=== PATIENT | male | born 1955 | race Caucasian/White ===

== ENCOUNTER 2017-07-20 07:59 | Inpatient (IN) | payer OTHER ==
[2017-07-20] VITALS (23 sets, daily range): BP systolic 96–120; BP diastolic 64–101; PULSE 64–117; RESP 12–23; TEMP 97.9–99.5; O2SAT 92–97
[~2017-07-20] VITALS: Ht 175.3 cm; Wt 78.5 kg
[2017-07-20] MEDS ORDERED: DILTIAZEM HCL 25 MG/5 ML VIAL IV PUSH ONE (08:15)
[2017-07-20] MEDS ORDERED: SODIUM CHLORIDE 0.9% FLUSH 10 ML FLUSH IVF PRN (08:15)
[2017-07-20] MEDS ORDERED: DILTIAZEM INJ 125 MG in SODIUM CHLORIDE 0.9% INJ 100 ML IV PRN ×2 (08:15→11:30)
[2017-07-20] MEDS ORDERED: LEVEMIR SQ (08:18)
[2017-07-20] MEDS ORDERED: ZOLO100T PO (08:18)
[2017-07-20] MEDS ORDERED: INSU100C SQ (08:18)
[2017-07-20] MEDS ORDERED: APIX5TAB PO (08:18)
[2017-07-20] MEDS ORDERED: ASPI81CH6 CHEW (08:18)
[2017-07-20] MEDS ORDERED: METO50TA PO (08:18)
[2017-07-20 08:22] LABS: AUTOMATED NEUTROPHIL # 6.8 TH/MM3 (1.8-7.7); BASOPHIL # 0.1 TH/MM3 (0-0.2); BASOPHIL % 0.6 % (0.0-2.0); EOSINOPHIL # 0.3 TH/MM3 (0-0.4); EOSINOPHIL % 2.5 % (0.0-4.0); HEMATOCRIT 44.1 % (39.0-51.0); HEMO FLAGS DIFF FINAL; LYMPH % 23.9 % (9.0-44.0); LYMPHOCYTE # 2.5 TH/MM3 (1.0-4.8); MEAN CELL VOLUME 85.1 FL (80.0-100.0); MEAN CORPUSCULAR HEMOGLOBIN 27.7 PG (27.0-34.0); MEAN CORPUSCULAR HGB CONC 32.6 % (32.0-36.0); MONO % 5.7 % (0.0-8.0); NEUT % 67.3 % (16.0-70.0); PLATELET COUNT 140 TH/MM3 (150-450); RED BLOOD COUNT 5.18 MIL/MM3 (4.50-5.90); RED CELL DISTRIBUTION WIDTH 12.7 % (11.6-17.2); WHITE BLOOD COUNT 10.3 TH/MM3 (4.0-11.0)
--- NOTE | 2017-07-20 08:26 | RADRPT ---
EXAM DATE/TIME: 07/20/2017 08:13 [place] COMPARISON: No previous studies available for comparison. INDICATIONS : Chest pain MEDICAL HISTORY : Diabetes mellitus type II. AFib SURGICAL HISTORY : None. ENCOUNTER: Initial ACUITY: 3 months PAIN SCORE: 5/10 LOCATION: Bilateral chest FINDINGS: Linear opacity at the left lung base with mild elevation of the left hemidiaphragm. Cardiomediastinal contours are within normal limits. Bony thorax is intact. CONCLUSION: 1. Findings consistent with atelectasis/scarring in the left lung base. Jin Durán MD on July 20, 2017 at 8:23 Board Certified Radiologist. This report was verified electronically.
[2017-07-20 08:30] LABS: CHLORIDE 102 MEQ/L (98-107); POTASSIUM 4.1 MEQ/L (3.5-5.1); SODIUM (NA) 135 MEQ/L (136-145)
[2017-07-20 08:33] LABS: ANION GAP 6 MEQ/L (5-15); BICARBONATE 27.3 MEQ/L (21.0-32.0)
[2017-07-20 08:34] LABS: BLOOD UREA NITROGEN 12 MG/DL (7-18)
[2017-07-20 08:36] LABS: ALT (GPT) 19 U/L (12-78)
[2017-07-20 08:37] LABS: AST (GOT) 17 U/L (15-37); GLOMERULAR FILTRATION RATE 118 ML/MIN (>89)
[2017-07-20 08:38] LABS: TOTAL BILIRUBIN ADULT 0.8 MG/DL (0.2-1.0)
[2017-07-20 08:39] LABS: ALKALINE PHOSPHATASE 89 U/L (45-117)
--- NOTE | 2017-07-20 09:57 | HHI.HP ---
[facility] Primary [facility] Physician No Primary Care Physician Admission Diagnosis atrial fibrillation with rvr Diagnoses: (1) Atrial fibrillation with RVR Diagnosis: Principal (2) Chest pain Diagnosis: Principal Chief Complaint: Shortness of breath, dyspnea, chest pain Travel History International Travel<30 Days: No Contact w/Intl Traveler <30 Da: No Traveled to Known Affected Are: No History of Present Illness Written by Chace Angeles, acting as scribe for Dr. Weinberg on 07/20/17 at 09 :56. 61 year-old male with known history of spinal stenosis, atrial fibrillation who presented to the hospital because of shortness of breath, dyspnea on exertion, chest discomfort, palpitations. Patient states that he is normal state of health until yesterday afternoon when he started noticing palpitations and he could feel his atrial fibrillation. Whenever he exerted himself he did notice increased palpitations as well as a chest pressure, he describes it as a squeezing inside of his chest. At any radiation to neck, back , shoulder, arms. He denied any diaphoresis, lightheadedness, dizziness. He was experiencing shortness of breath and dyspnea on exertion. Patient states that he was diagnosed with atrial fibrillation in April when he underwent lumbar spine surgery. He is supposed to take the Toprol 25 mg twice daily, however he is limited taken it once daily because it causes him to have too much fatigue and somnolence. Patient has not followed up with any primary medical doctor or piece cutter for his atrial fibrillation since he was diagnosed in April in [place], [place]. Patient just moved here one week ago and does not have a primary medical doctor. Patient had evaluation emergency department found to have atrial fibrillation with RVR with heart rate of 131. Patient given Cardizem IV 15 mg with control of his heart rate and subtotally started on Cardizem 5 mg/hr IV. Patient's heart rate has remained controlled. Patient does not indicate any chest discomfort once rate controlled. Review of Systems Respiratory: COMPLAINS OF: Shortness of breath Cardiovascular: COMPLAINS OF: Chest pain, Palpitations, Dyspnea on Exertion Except as stated in HPI: all other systems reviewed are Neg Past Family Social History Past Medical History Atrial fibrillation Diabetes Lumbar spinal stenosis Past Surgical History Lumbar spine surgery for spinal stenosis Reported Medications Reported Meds & Active Scripts Active Reported Levemir Inj (Insulin Detemir) 1,000 unit/ 10 ML Vial 12 Units SQ HS Do not mix with any other Insulin. Humalog (Insulin Lispro) 100 Unit/Ml Cartridge 4 Units SQ TIDAC Eliquis (Apixaban) 5 Mg Tab 5 Mg PO BID Aspirin Low Dose (Aspirin) 81 Mg Chew 81 Mg CHEW DAILY Metoprolol Tartrate 50 Mg Tab 50 Mg PO BID Zoloft (Sertraline HCl) 100 Mg Tab 100 Mg PO DAILY Allergies: Coded Allergies: No Known Allergies (Unverified , 07/20/17) Family History Reviewed and significant for father from lung cancer, mother from pancreatic cancer Social History Patient continues to smoke cigarettes, is smoking approximately one quarter pack a cigarettes a day since he was 33 years old. Denies any alcohol or illicit drugs Physical Exam Vital Signs Vital Signs Date Time Temp Pulse Resp B/P (MAP) Pulse Ox O2 Delivery O2 Flow Rate FiO2 07/20/17 09:02 79 18 104/69 (81) 96 Nasal Cannula 2.00 07/20/17 08:41 92 93/68 07/20/17 08:35 96 Nasal Cannula 2.00 07/20/17 08:30 76 18 92 Room Air 07/20/17 08:19 115 120/90 (100) 115/85 (95) 07/20/17 08:13 95 Room Air 07/20/17 08:13 95 Room Air 07/20/17 08:06 134 95 Room Air 07/20/17 08:00 97.9 117 18 120/101 (107) 94 Physical Exam GENERAL: Well-developed, well-nourished, in no acute distress. alert and orientated HEENT: Head is normocephalic without any lesions or masses noted. Facial features are symmetric. Eyes: Pupils equal round reactive to light. Extraocular muscles are intact. Conjunctivae were clear. Oropharyngeal: Pharynx without any erythema edema. Tongue is midline without deviation. Buccal mucosa is moist without any masses or lesions NECK: Supple without any masses. Trachea midline no deviation. No JVD, no bruits are appreciated CARDIAC: Irregular rhythm, irregular rate. S1/S2 are heard. No murmurs gallops or rubs. LUNGS: Clear to auscultation bilaterally. No wheeze, rhonchi or rales. No use of accessory muscles on inspiration or expiration. ABDOMEN: Soft, nontender. Nondistended. Bowel sounds heard in all 4 quadrants. No organomegaly or masses. Negative rebound, negative guarding EXTREMITIES: No edema, pulses are equal bilaterally. No cyanosis or clubbing NEUROLOGY: Mood and affect appear appropriate. Cranial nerves II through XII grossly intact. Muscle strength 5/5 in upper and lower extremities bilaterally. Deep tendon reflexes are 2+ in upper and lower extremities bilaterally. Laboratory Laboratory Tests Test 07/20/17 08:00 White Blood Count 10.3 Red Blood Count 5.18 Hemoglobin 14.4 Hematocrit 44.1 Mean Corpuscular Volume 85.1 Mean Corpuscular Hemoglobin 27.7 Mean Corpuscular Hemoglobin Concent 32.6 Red Cell Distribution Width 12.7 Platelet Count 140 Mean Platelet Volume 9.1 Neutrophils (%) (Auto) 67.3 Lymphocytes (%) (Auto) 23.9 Monocytes (%) (Auto) 5.7 Eosinophils (%) (Auto) 2.5 Basophils (%) (Auto) 0.6 Neutrophils # (Auto) 6.8 Lymphocytes # (Auto) 2.5 Monocytes # (Auto) 0.6 Eosinophils # (Auto) 0.3 Basophils # (Auto) 0.1 CBC Comment DIFF FINAL Differential Comment Blood Urea Nitrogen 12 Creatinine 0.68 Random Glucose 208 Total Protein 8.6 Albumin 3.7 Calcium Level 8.7 Alkaline Phosphatase 89 Aspartate Amino Transf (AST/SGOT) 17 Alanine Aminotransferase (ALT/SGPT) 19 Total Bilirubin 0.8 Sodium Level 135 Potassium Level 4.1 Chloride Level 102 Carbon Dioxide Level 27.3 Anion Gap 6 Estimat Glomerular Filtration Rate 118 Troponin I LESS THAN 0.02 Result Diagram: 07/20/17 0800 07/20/17 08 Imaging Last Impressions Chest X-Ray 07/20/17808 Signed Impressions: Service Date/Time: Thursday, July 20, 2017 08:13 - CONCLUSION: 1. Findings consistent with atelectasis/scarring in the left lung base. MD Shirley Sim VTE Risk Assessment Caprini VTE Risk Assessment: Mod/High Risk (score >= 2) Caprini Risk Assessment Model Point Value = 1 Point Value = 2 Point Value = 3 Point Value = 5 Age 41-60 Minor surgery BMI > 25 kg/m2 Swollen legs Varicose veins or History of unexplained or recurrent spontaneous Oral contraceptives or hormone replacement Sepsis (< 1 month) Serious lung disease, including pneumonia (< 1 month) Abnormal pulmonary function Acute myocardial infarction Congestive heart failure (< 1 month) History of inflammatory bowel disease Medical patient at bed rest Age 61-74 Arthroscopic surgery Major open surgery (> 45 min) Laparoscopic surgery (> 45 min) Malignancy Confined to bed (> 72 hours) Immobilizing plaster cast Central venous access Age >= 75 History of VTE Family history of VTE Factor V Leiden Prothrombin [id number] Lupus anticoagulant Anticardiolipin antibodies Elevated serum homocysteine Heparin-induced thrombocytopenia Other congenital or acquired thrombophilia Stroke (< 1 month) Elective arthroplasty Hip, pelvis, or leg fracture Acute spinal cord injury (< 1 month) Prophylaxis Regimen Total Risk Factor Score Risk Level Prophylaxis Regimen 0-1 Low Early ambulation 2 Moderate Order ONE of the following: *Sequential Compression Device (SCD) *Heparin 5000 units SQ BID 3-4 Higher Order ONE of the following medications: *Heparin 5000 units SQ TID *Enoxaparin/Lovenox 40 mg SQ daily (WT < 150 kg, CrCl > 30 mL/min) *Enoxaparin/Lovenox 30 mg SQ daily (WT < 150 kg, CrCl > 10-29 mL/min) *Enoxaparin/Lovenox 30 mg SQ BID (WT < 150 kg, CrCl > 30 mL/min) AND/OR *Sequential Compression Device (SCD) 5 or more Highest Order ONE of the following medications: *Heparin 5000 units SQ TID (Preferred with Epidurals) *Enoxaparin/Lovenox 40 mg SQ daily (WT < 150 kg, CrCl > 30 mL/min) *Enoxaparin/Lovenox 30 mg SQ daily (WT < 150 kg, CrCl > 10-29 mL/min) *Enoxaparin/Lovenox 30 mg SQ BID (WT < 150 kg, CrCl > 30 mL/min) AND *Sequential Compression Device (SCD) Assessment and Plan Problem List: (1) Atrial fibrillation with RVR ICD Code: I48.91 - Unspecified atrial fibrillation Assessment and Plan 61-year-old man with Atrial fibrillation with RVR, CHADS score 2, patient anticoagulated on Eliquis EKG does show heart rate 131, atrial fibrillation with RVR ACS rule out per protocol with serial cardiac enzymes and EKGs Continue Cardizem IV drip, start by mouth Cardizem 30 mg every 6 hours and discontinue Cardizem IV Anticipating converting to Cardizem CD 120 mg tomorrow a.m. We'll hold metoprolol secondary to low blood pressure chest discomfort, Patient indicates chest pain associated with palpitations, exertion, shortness of breath Continue trending cardiac enzymes and EKGs to rule out any acute coronary event Awaiting echocardiogram to evaluate cardiac function Diabetes Continue Levemir Accu-Cheks with sliding scale insulin DVT prevention Patient is anticoagulated with Eliquis This note was transcribed by mari Angeles. I, Dr. Murphy Weinberg personally performed the history, physical exam, and medical decision making; and confirmed the accuracy of the information in the transcribed note. Authenticated by Dr. Murphy Weinberg on 07/20/17 at 09:57. Code Status Full code Discussed Condition With Patient, ED physician Physician Certification 2 Midnight Certification Type: Admission for Inpatient Services Order for Inpatient Services The services are ordered in accordance with Medicare regulations or non- Medicare payer requirements, as applicable. In the case of services not specified as inpatient-only, they are appropriately provided as inpatient services in accordance with the 2-midnight benchmark. Estimated LOS (days): 2 days is the estimated time the patient will need to remain in the hospital, assuming treatment plan goals are met and no additional complications. Post-Hospital Plan: Not yet determined Chace Angeles Jul 20, 2017 09:57 Murphy Weinberg MD Jul 20, 2017 09:57
[2017-07-20] MEDS ORDERED: ACETAMINOPHEN 325 MG TAB PO PRN (10:00)
[2017-07-20] MEDS ORDERED: ONDANSETRON HCL 4 MG/2 ML VIAL IV PUSH PRN (10:00)
[2017-07-20] MEDS ORDERED: DEXTROSE 50% IN WATER 50 ML VIAL(D50) IV PUSH PRN (10:00)
[2017-07-20] MEDS ORDERED: GLUCAGON 1 MG/ML VIAL OTHER PRN (10:00)
[2017-07-20] MEDS ORDERED: DOCUSATE SODIUM 50 MG/SENNA 8.6 MG TAB PO PRN (10:00)
[2017-07-20] MEDS ORDERED: SODIUM CHLORIDE 0.9% FLUSH 10 ML FLUSH IV FLUSH PRN (10:00)
[2017-07-20] MEDS ORDERED: TEMAZEPAM 15 MG CAP PO PRN (10:00)
[2017-07-20] MEDS: DILTIAZEM HCL 30 MG TAB PO SCH ×3 (11:54→23:53)
[2017-07-20] MEDS: INSULIN ASPART SUPPLEMENTAL SCALE SQ SCH ×3 (12:00→20:32)
[2017-07-20] MEDS: INSULIN ASPART 1,000 UNITS/10 ML VIAL SQ SCH ×2 (12:00→17:00)
--- NOTE | 2017-07-20 13:07 | PD ---
HPI Chief Complaint: Chest Pain Time Seen by Provider: 08:01 Travel History International Travel<30 days: No Contact w/Intl Traveler<30days: No Traveled to known affect area: No History of Present Illness HPI This is a 61-year-old male who presents to the emergency department with increasing shortness of breath, worse with exertion, improved with rest associated with palpitations feeling like his heart is beating quickly and his chest. He was told about a month ago when Screened for back surgery that he had atrial fibrillation and at that time he was started on rate control medications. Since then he's moved. He's been taking his medications as prescribed. He says his symptoms have acutely worsened over the past 3 days to the point where he can't exert normally without having to take a break. PFSH Past Medical History Atrial Fibrillation: Yes Autoimmune Disease: No Depression: Yes Heart Rhythm Problems: Yes Cancer: No Cardiovascular Problems: Yes (Afib) High Cholesterol: No Chest Pain: Yes Congestive Heart Failure: No Cerebrovascular Accident: No Diabetes: Yes Patient Takes Glucophage: No Endocrine: Yes (TYPE 2 DM) GERD: Yes Genitourinary: No Hiatal Hernia: No Musculoskeletal: No Neurologic: Yes (lumbar stenosis) Psychiatric: No Reproductive: No Respiratory: No Migraines: No Seizures: No Thyroid Disease: No Ulcer: No Influenza Vaccination: No Past Surgical History Abdominal Surgery: No AICD: No Arteriovenous Shunt: No Cardiac Surgery: No Ear Surgery: No Endocrine Surgery: No Eye Surgery: No Genitourinary Surgery: No Gynecologic Surgery: No Insulin Pump: No Joint Replacement: No Oral Surgery: Yes (tooth extraction) Pacemaker: No Thoracic Surgery: No Other Surgery: Yes (SPINAL SURGERY) Social History Alcohol Use: No Tobacco Use: No Substance Use: No Allergies-Medications (Allergen,Severity, Reaction): Coded Allergies: No Known Allergies (Unverified , 07/20/17) Reported Meds & Prescriptions Reported Meds & Active Scripts Active Reported Levemir Inj (Insulin Detemir) 1,000 unit/ 10 ML Vial 12 Units SQ HS Do not mix with any other Insulin. Humalog (Insulin Lispro) 100 Unit/Ml Cartridge 4 Units SQ TIDAC Eliquis (Apixaban) 5 Mg Tab 5 Mg PO BID Aspirin Low Dose (Aspirin) 81 Mg Chew 81 Mg CHEW DAILY Metoprolol Tartrate 50 Mg Tab 50 Mg PO BID Zoloft (Sertraline HCl) 100 Mg Tab 100 Mg PO DAILY Review of Systems Except as stated in HPI: all other systems reviewed are Neg Physical Exam Narrative GENERAL:Well appearing, no acute distress SKIN: Focused skin assessment warm and dry. HEAD: Atraumatic. Normocephalic. EYES: Pupils equal and round. No injection or drainage. ENT: Moist mucous membranes NECK: Trachea midline. CARDIOVASCULAR: tachycardic, irregularly irregular. No murmur appreciated. RESPIRATORY: Clear to auscultation. Breath sounds equal bilaterally. GASTROINTESTINAL: Abdomen soft, non-tender, nondistended. MUSCULOSKELETAL: No obvious deformities. NEUROLOGICAL: Awake and alert. No obvious cranial nerve deficits. Moving all extremities. PSYCHIATRIC: Appropriate mood and affect; insight and judgment normal. Data Data Last Documented VS Vital Signs Date Time Temp Pulse Resp B/P (MAP) Pulse Ox O2 Delivery O2 Flow Rate FiO2 07/20/17 09:02 79 18 104/69 (81) 96 Nasal Cannula 2.00 07/20/17 08:00 97.9 Orders Orders Electrocardiogram (07/20/17 08:09) Complete Blood Count With Diff (07/20/17 08:09) Comprehensive Metabolic Panel (07/20/17 08:09) Troponin I (07/20/17 08:09) Chest, Single Ap (07/20/17 08:09) Ecg Monitoring (07/20/17 08:09) Bilateral Bp Monitoring (07/20/17 08:09) Iv Access Insert/Monitor (07/20/17 08:09) Oximetry (07/20/17 08:09) Oxygen Administration (07/20/17 08:09) Sodium Chloride 0.9% Flush (Ns Flush) (07/20/17 08:15) Vital Signs (Adult) Q15MX4,Q4H (07/20/17 08:09) [employer] [facility] [employer] / Telemetry SALO.Q8H (07/20/17 08:09) Cardiac Rhythm SALO.Q8H (07/20/17 08:09) Notify Dr: Other (07/20/17 08:09) Diltiazem Inj (Cardizem Inj) (07/20/17 08:15) Diltiazem Inj (Cardizem Inj) (07/20/17 08:15) B-Type Natriuretic Peptide (07/20/17 09:18) Electrocardiogram (07/20/17 ) Admit Order (Ed Use Only) (07/20/17 09:54) Labs Laboratory Tests Test 07/20/17 08:00 White Blood Count 10.3 TH/MM3 Red Blood Count 5.18 MIL/MM3 Hemoglobin 14.4 GM/DL Hematocrit 44.1 % Mean Corpuscular Volume 85.1 FL Mean Corpuscular Hemoglobin 27.7 PG Mean Corpuscular Hemoglobin Concent 32.6 % Red Cell Distribution Width 12.7 % Platelet Count 140 TH/MM3 Mean Platelet Volume 9.1 FL Neutrophils (%) (Auto) 67.3 % Lymphocytes (%) (Auto) 23.9 % Monocytes (%) (Auto) 5.7 % Eosinophils (%) (Auto) 2.5 % Basophils (%) (Auto) 0.6 % Neutrophils # (Auto) 6.8 TH/MM3 Lymphocytes # (Auto) 2.5 TH/MM3 Monocytes # (Auto) 0.6 TH/MM3 Eosinophils # (Auto) 0.3 TH/MM3 Basophils # (Auto) 0.1 TH/MM3 CBC Comment DIFF FINAL Differential Comment Blood Urea Nitrogen 12 MG/DL Creatinine 0.68 MG/DL Random Glucose 208 MG/DL Total Protein 8.6 GM/DL Albumin 3.7 GM/DL Calcium Level 8.7 MG/DL Alkaline Phosphatase 89 U/L Aspartate Amino Transf (AST/SGOT) 17 U/L Alanine Aminotransferase (ALT/SGPT) 19 U/L Total Bilirubin 0.8 MG/DL Sodium Level 135 MEQ/L Potassium Level 4.1 MEQ/L Chloride Level 102 MEQ/L Carbon Dioxide Level 27.3 MEQ/L Anion Gap 6 MEQ/L Estimat Glomerular Filtration Rate 118 ML/MIN Troponin I LESS THAN 0.02 NG/ML B-Type Natriuretic Peptide 340 PG/ML MDM Medical Decision Making Medical Screen Exam Complete: Yes Emergency Medical Condition: Yes Interpretation(s) EKG: Atrial fibrillation with rapid ventricular response No leukocytosis Electrolytes are reassuring Troponin is normal BNP is 340 Last 24 hours Impressions Chest X-Ray 07/20/17 0809 Signed Impressions: Service Date/Time: Thursday, July 20, 2017 08:13 - CONCLUSION: 1. Findings consistent with atelectasis/scarring in the left lung base. Jin Durán MD Differential Diagnosis Atrial fibrillation with RVR, congestive heart failure, pneumonia, bronchitis Narrative Course This is a 61-year-old male who presents with increasing shortness of breath and palpitations. Here on arrival into the emergency department he was found to be in atrial fibrillation with a heart rate of 130 to 150. His blood pressure was normal. Labs are obtained which demonstrate a mildly elevated. Patient was given a bolus of diltiazem and started on a diltiazem infusion and his heart rate improved. I think patient requires admission for continued rate control as he's been increasingly symptomatic and he has no short term close follow-up here established. Diagnosis Primary Impression: Atrial fibrillation with RVR Admitting Information Admitting Physician Requests: Admit Amelia Pulliam MD Jul 20, 2017 13:07
--- NOTE | 2017-07-20 13:16 | EKG ---
Date Performed: 07/20/2017 Time Performed: 08:04:58 PTAGE: 61 years EKG: ATRIAL FIBRILLATION WITH RAPID VENTRICULAR RESPONSE MARKED LEFT AXIS DEVIATION PATTERN CONS ISTENT WITH PULMONARY DISEASE NONSPECIFIC T-WAVE ABNORMALITY ABNORMAL ECG CLINICAL CORRELATION IS REC OMMENDED. NO PREVIOUS TRACING DOCTOR: Adolfo Madrigal Interpretating Date/Time 07/20/2017 13:14:19
[2017-07-20 16:38] LABS: CREATINE KINASE 45 U/L (39-308)
[2017-07-20 20:24] LABS: MAGNESIUM 1.8 MG/DL (1.5-2.5)
[2017-07-20] MEDS: SODIUM CHLORIDE 0.9% FLUSH 10 ML FLUSH IV FLUSH SCH (20:32)
[2017-07-20] MEDS: INSULIN DETEMIR 100 UNITS/ML VIAL SQ SCH (20:32)
[2017-07-20] MEDS: APIXABAN 5 MG TABLET PO SCH (20:32)
[2017-07-20 20:41] LABS: CREATINE KINASE 47 U/L (39-308)
[2017-07-21] VITALS (15 sets, daily range): BP systolic 90–134; BP diastolic 55–99; PULSE 83–122; RESP 13–27; TEMP 98.8–99.6; O2SAT 92–96
[2017-07-21] MEDS: DILTIAZEM HCL 30 MG TAB PO SCH (05:32)
[2017-07-21 07:04] LABS: HEMATOCRIT 38.2 % (39.0-51.0); MEAN CELL VOLUME 85.1 FL (80.0-100.0); MEAN CORPUSCULAR HEMOGLOBIN 28.5 PG (27.0-34.0); MEAN CORPUSCULAR HGB CONC 33.5 % (32.0-36.0); PLATELET COUNT 101 TH/MM3 (150-450); RED BLOOD COUNT 4.49 MIL/MM3 (4.50-5.90); RED CELL DISTRIBUTION WIDTH 12.4 % (11.6-17.2); REVIEW FLAG FINAL; WHITE BLOOD COUNT 6.8 TH/MM3 (4.0-11.0)
[2017-07-21] MEDS: SERTRALINE HCL 100 MG TAB PO SCH (09:37)
[2017-07-21] MEDS: APIXABAN 5 MG TABLET PO SCH ×2 (09:38→21:02)
[2017-07-21] MEDS: ASPIRIN 81 MG CHEW TAB CHEW SCH (09:38)
[2017-07-21] MEDS: SODIUM CHLORIDE 0.9% FLUSH 10 ML FLUSH IV FLUSH SCH ×2 (09:38→21:02)
[2017-07-21] MEDS: DILTIAZEM-CD 180 MG CAP ER PO SCH (09:38)
[2017-07-21] MEDS: INSULIN ASPART 1,000 UNITS/10 ML VIAL SQ SCH ×3 (09:39→17:25)
[2017-07-21] MEDS: INSULIN ASPART SUPPLEMENTAL SCALE SQ SCH ×4 (09:40→21:00)
[2017-07-21] MEDS ORDERED: PNEUMOCOCCAL POLYVALENT INJ 25 MCG/0.5 ML SYR IM ONE (10:00)
[2017-07-21] MEDS ORDERED: INFLUENZA VIRUS VACCINE (QUADRIVALENT) 0.5 ML SYR IM ONE (10:00)
--- NOTE | 2017-07-21 10:53 | HHI.PR ---
Subjective Remarks Follow-up atrial fibrillation with RVR 07/21/17-patient seen and examined; currently denies any heart palpitation or significant shortness of breath. HR 90-110's Objective Vitals Vital Signs Date Time Temp Pulse Resp B/P (MAP) Pulse Ox O2 Delivery O2 Flow Rate FiO2 07/21/17 04:00 108 07/21/17 04:00 98.8 108 22 110/85 (93) 96 07/21/17 00:00 122 07/21/17 00:00 98.9 122 22 134/99 (111) 95 07/20/17 22:00 92 07/20/17 21:30 98 07/20/17 21:00 98 07/20/17 20:30 104 07/20/17 20:00 102 07/20/17 20:00 99.5 108 22 114/85 (95) 97 07/20/17 19:30 110 07/20/17 19:00 110 07/20/17 18:00 114 07/20/17 17:00 92 07/20/17 16:00 68 07/20/17 16:00 98.6 90 23 101/66 (78) 95 07/20/17 15:00 68 07/20/17 15:00 78 07/20/17 14:00 64 07/20/17 13:00 84 07/20/17 12:00 84 07/20/17 12:00 98.8 84 22 96/73 (81) 94 07/20/17 11:00 80 I/O 07/20/17 07/20/17 07/20/17 07/21/17 07/21/17 07/21/17 07:00 15:00 23:00 07:00 15:00 23:00 Intake Total 8.9 ml 501 ml 240 ml Output Total 400 ml 750 ml Balance 8.9 ml 101 ml -510 ml Intake Oral 480 ml 240 ml IV Total 8.9 ml 21 ml Output Urine Total 400 ml 750 ml # Bowel Movements 0 Result Diagram: 07/21/17 0605 07/20/17 0800 Imaging Last Impressions Chest X-Ray 07/20/17 0809 Signed Impressions: Service Date/Time: Thursday, July 20, 2017 08:13 - CONCLUSION: 1. Findings consistent with atelectasis/scarring in the left lung base. Jin Durán MD Objective Remarks GENERAL: NAD SKIN: Warm and dry. HEAD: Normocephalic. EYES: No scleral icterus. No injection or drainage. NECK: Supple, trachea midline. No JVD or lymphadenopathy. CARDIOVASCULAR: Irregular Regular rate and rhythm without murmurs, gallops, or rubs. RESPIRATORY: Breath sounds equal bilaterally. No accessory muscle use. GASTROINTESTINAL: Abdomen soft, non-tender, nondistended. MUSCULOSKELETAL: No cyanosis, or edema. BACK: Nontender without obvious deformity. No CVA tenderness. A/P Problem List: (1) Atrial fibrillation with RVR ICD Code: I48.91 - Unspecified atrial fibrillation Assessment and Plan 61-year-old man with Atrial fibrillation with RVR, CHADS score 2, patient anticoagulated on Eliquis EKG does show heart rate 131, atrial fibrillation with RVR ACS ruled out per protocol with serial cardiac enzymes and EKGs s/p Cardizem IV drip and currently on Cardizem CD 180 mg daily We'll hold metoprolol secondary to low blood pressure chest discomfort, ACS ruled out per protocol with serial cardiac enzymes and EKGs 2D echocardiogram pending to evaluate cardiac function Diabetes Continue Levemir Accu-Cheks with sliding scale insulin DVT prevention Patient is anticoagulated with Murphy Edge MD Jul 21, 2017 10:53
--- NOTE | 2017-07-21 14:09 | ECHRPT ---
Indication: a fib/flutter CONCLUSIONS The left ventricular systolic function is mildly reduced with an estimated ejection fraction in the range of 45- 50%. Wall thickness is measured at the upper limits of normal. Trace mitral valve regurgitation. There is mild tricuspid valve regurgitation. BP: / HR: Rhythm: MEASUREMENTS (Male / Female) Normal Values Technical Quality:Good 2D ECHO LV Diastolic Diameter PLAX 4.9 cm 4.2 - 5.9 / 3.9 - 5.3 cm LV Systolic Diameter PLAX 4.0 cm IVS Diastolic Thickness 1.3 cm 0.6 - 1.0 / 0.6 - 0.9 cm LVPW Diastolic Thickness 1.0 cm 0.6 - 1.0 / 0.6 - 0.9 cm LV Relative Wall Thickness 0.5 RV Internal Dim ED PLAX 2.5 cm M-MODE Aortic Root Diameter MM 3.4 cm LA Systolic Diameter MM 3.9 cm LA Ao Ratio MM 1.1 AV Cusp Separation MM 2.2 cm DOPPLER LV E' Lateral Velocity 10.5 cm/s LV E' Septal Velocity 8.1 cm/s TR Peak Velocity 201.0 cm/s TR Peak Gradient 16.2 mmHg Right Atrial Pressure 10.0 mmHg Pulmonary Artery Systolic Pressu 26.2 mmHg Right Ventricular Systolic Press 26.2 mmHg FINDINGS LEFT VENTRICLE The left ventricular systolic function is mildly reduced with an estimated ejection fraction in the range of 45- 50%. Normal left ventricular size. There is global left ventricular dysfunction. This study was not technically sufficient to allow for evaluation of left ventricular diastolic func tion. Wall thickness is measured at the upper limits of normal. RIGHT VENTRICLE Normal right ventricular size and systolic function. LEFT ATRIUM The left atrial size is mildly dilated. RIGHT ATRIUM The right atrial size is normal. ATRIAL SEPTUM Normal atrial septal thickness. AORTA The aortic root and proximal ascending aorta are normal in size on limited imaging. MITRAL VALVE Structurally normal mitral valve. Trace mitral valve regurgitation. No mitral valve stenosis. AORTIC VALVE Trileaflet aortic valve. No aortic valve stenosis. No aortic valve regurgitation. TRICUSPID VALVE There is mild tricuspid valve regurgitation. The estimated pulmonary arterial pressure is 26.2 mmHg. Structurally normal tricuspid valve. No tricuspid valve stenosis. PULMONARY VALVE No pulmonary valve regurgitation or stenosis. VESSELS The inferior vena cava is normal in size. PERICARDIUM No pericardial effusion. Adolfo Madrigal DO (Electronically Signed) Final Date:21 July 2017 14:08
--- NOTE | 2017-07-21 15:25 | EKG ---
Date Performed: 07/20/2017 Time Performed: 15:55:50 PTAGE: 61 years EKG: ATRIAL FIBRILLATION BORDERLINE LEFT AXIS DEVIATION NONSPECIFIC T-WAVE ABNORMALITY ABNORMAL ECG PREVIOUS TRACING : 07/20/2017 08.04 Compared to the previous tracing, rate is now controlled DOCTOR: Adolfo Madrigal Interpretating Date/Time 07/21/2017 15:24:44
[2017-07-21] MEDS: INSULIN DETEMIR 100 UNITS/ML VIAL SQ SCH (21:00)
[2017-07-22] VITALS (8 sets, daily range): BP systolic 100–119; BP diastolic 58–86; PULSE 60–98; RESP 16–22; TEMP 98.1–99.5; O2SAT 93–97
[2017-07-22] MEDS: INSULIN ASPART 1,000 UNITS/10 ML VIAL SQ SCH ×3 (08:00→17:00)
[2017-07-22] MEDS: INSULIN ASPART SUPPLEMENTAL SCALE SQ SCH ×4 (08:00→20:11)
[2017-07-22] MEDS ORDERED: DIGOXIN 0.5 MG/2 ML VIAL IVS ONE (08:30)
[2017-07-22] MEDS: DILTIAZEM-CD 180 MG CAP ER PO SCH (08:53)
[2017-07-22] MEDS: SERTRALINE HCL 100 MG TAB PO SCH (08:54)
[2017-07-22] MEDS: APIXABAN 5 MG TABLET PO SCH (08:54)
[2017-07-22] MEDS: SODIUM CHLORIDE 0.9% FLUSH 10 ML FLUSH IV FLUSH SCH ×2 (09:00→20:10)
[2017-07-22] MEDS: ASPIRIN 81 MG CHEW TAB CHEW SCH (09:00)
--- NOTE | 2017-07-22 10:12 | HHI.PR ---
Subjective Remarks Follow-up atrial fibrillation with RVR 07/21/17-patient seen and examined; currently denies any heart palpitation or significant shortness of breath. HR 90-110's 07/22/17-patient seen and examined, still in A. fib with RVR with rate this morning in 120s Objective Vitals Vital Signs Date Time Temp Pulse Resp B/P (MAP) Pulse Ox O2 Delivery O2 Flow Rate FiO2 07/22/17 08:00 98.3 60 18 106/75 (85) 95 07/22/17 05:15 98.1 60 18 100/59 (73) 94 07/22/17 00:36 98.8 63 16 114/58 (76) 93 07/21/17 20:27 99.6 83 20 98/55 (69) 94 07/21/17 20:00 100 07/21/17 18:36 84 07/21/17 16:00 99.4 84 18 99/64 (76) 96 07/21/17 14:51 98 22 90/63 (72) 07/21/17 13:00 94 20 95 I/O 07/21/17 07/21/17 07/21/17 07/22/17 07/22/17 07/22/17 07:00 15:00 23:00 07:00 15:00 23:00 Intake Total 240 ml 550 ml Output Total 750 ml Balance -510 ml 550 ml Intake Oral 240 ml 550 ml Output Urine Total 750 ml # Voids 1 2 # Bowel Movements 0 0 Result Diagram: 07/21/17 0605 07/20/17 0800 Objective Remarks GENERAL: NAD SKIN: Warm and dry. HEAD: Normocephalic. EYES: No scleral icterus. No injection or drainage. NECK: Supple, trachea midline. No JVD or lymphadenopathy. CARDIOVASCULAR: Irregular Regular rate and rhythm without murmurs, gallops, or rubs. RESPIRATORY: Breath sounds equal bilaterally. No accessory muscle use. GASTROINTESTINAL: Abdomen soft, non-tender, nondistended. MUSCULOSKELETAL: No cyanosis, or edema. BACK: Nontender without obvious deformity. No CVA tenderness. A/P Problem List: (1) Atrial fibrillation with RVR ICD Code: I48.91 - Unspecified atrial fibrillation Assessment and Plan 61-year-old man with Atrial fibrillation with RVR, CHADS score 2, patient anticoagulated on Eliquis EKG does show heart rate 131, atrial fibrillation with RVR ACS ruled out per protocol with serial cardiac enzymes and EKGs s/p Cardizem IV drip and currently on Cardizem CD 180 mg daily We'll hold metoprolol secondary to low blood pressure Add digoxin and consult Cardiology chest discomfort, ACS ruled out per protocol with serial cardiac enzymes and EKGs 2D echocardiogram with EF 45-50% Diabetes Continue Levemir Accu-Cheks with sliding scale insulin DVT prevention Patient is anticoagulated with Murphy Edge MD Jul 22, 2017 10:12
[2017-07-22] MEDS ORDERED: DIGOXIN 0.5 MG/2 ML VIAL IVS SCH (14:30)
--- NOTE | 2017-07-22 19:11 | MB ---
cc: KARLY MORLAEZ M.D. DATE OF CONSULTATION: 07/22/2017. HISTORY OF PRESENT ILLNESS: Ayaz is a very pleasant 60-year-old gentleman with history of tobacco use who presents with a chief complaint of shortness of breath. He was found to be in atrial fibrillation with rapid ventricular response. Currently he is resting comfortably and in no acute distress. He denies chest pain, fevers, chills, cough, GI or bleeding, paroxysmal nocturnal dyspnea, orthopnea, syncope or dizziness. According to the emergency room, he did complain of chest pain, palpitations, dyspnea on exertion. He has a history of atrial fibrillation and he felt like he was in atrial fibrillation. PAST MEDICAL HISTORY: His past medical history is per the history of present illness. 1. 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 2. He has a history of atrial fibrillation. 3. Diabetes mellitus. 4. Lumbar spinal stenosis. MEDICATIONS PRIOR TO ADMISSION: 1. Levemir. 2. Humalog. 3. Eliquis 5 milligrams twice a day. 4. Aspirin 81 milligrams daily. 5. Metoprolol 50 twice a day. 6. Zoloft. ALLERGIES: None. MEDICATIONS IN THE HOSPITAL: 1. Digoxin 0.125 daily p.o. 2. Digoxin 0.25 IV q. 6 hours. 3. Aspirin 81 milligrams daily. 4. Sertraline 100 milligrams daily. 5. Cardizem 180 daily. 6. Insulin 12 units at bedtime. 7. Insulin 4 units three times a day. 8. Cardizem drip. PHYSICAL EXAMINATION: VITAL SIGNS: Blood pressure 119/69, pulse ranging between 60 and 98. Respiratory rate 18. Temperature 98.8. Saturations 95% on room air. GENERAL: He is alert and oriented times three and in no acute distress. NECK: The neck is supple. No jugular venous distention. No bruits. CARDIOVASCULAR EXAM: S1 and S2. No murmurs, rubs or gallops. LUNGS: Clear to auscultation bilaterally. ABDOMEN: The abdomen is soft, nontender and nondistended with positive bowel sounds. EXTREMITIES: No lower extremity edema. LABS: White count 6.8, hemoglobin 12.8, hematocrit 38.2, platelet count 101,000. Sodium 135, potassium 4.1, chloride 102, bicarbonate 27.3, BUN 12, creatinine 0.68, glucose 208. Troponin is less than 0.02 x3. BNP is 340. TSH is 1.350. IMAGING STUDIES: Chest x-ray shows findings consistent with atelectasis and scarring in the left lung base. EKGS: EKG shows atrial fibrillation with a rate of 131 beats per minute, left anterior fascicular block, poor R wave progression. Echocardiogram showed an ejection fraction of 45% to 50%, trace mitral regurgitation. DIAGNOSES: He has the following diagnoses: 1. Paroxysmal atrial fibrillation with rapid ventricular response. 2. Decompensated congestive heart failure. 3. Cardiomyopathy. 4. Tobacco abuse. 5. Diabetes mellitus. 6. Hyponatremia. 7. Anemia. 8. Thrombocytopenia. 9. Unstable angina. DISCUSSION: I have recommended that the patient have a right and left heart catheterization due to his new-onset cardiomyopathy and multiple cardiac risk factors including tobacco use, diabetes mellitus, and unstable angina with chest pain on admission. I have told the nurse to hold his Eliquis. Will continue a baby aspirin 81 milligrams daily. Will also hold the dig order, 0.25 q. 6 hours, as this may make him digitoxic prior to the catheterization. Strongly recommend smoking cessation. I have counselled the patient to stop smoking. I explained to him that the risk of catheterization and/or percutaneous coronary intervention is a 5% to 10% chance of , stroke, heart attack, bleeding, infection, need for bypass surgery, surgery, dialysis, blood transfusion, anaphylaxis, arrhythmia, bleeding, and infection. The patient understands and agrees to proceed. MD VASILIY Calzada/MARCI /6:28 PM /7:02 PM
[2017-07-22] MEDS: INSULIN DETEMIR 100 UNITS/ML VIAL SQ SCH (20:10)
[2017-07-22] MEDS ORDERED: CHLORHEXIDINE GLUCONATE 2 % 1 PACK (2 CLOTHS)(extra cloths) TOPICAL PRN (21:15)
[2017-07-23] VITALS (17 sets, daily range): BP systolic 102–158; BP diastolic 55–96; PULSE 79–112; RESP 13–23; TEMP 98.3–98.4; O2SAT 91–96
[2017-07-23] MEDS ORDERED: CHLORHEXIDINE GLUCONATE 2 % 1 PACK (2 CLOTHS)(taper/protocol) TOPICAL SCH (04:00)
[2017-07-23] MEDS: INSULIN ASPART 1,000 UNITS/10 ML VIAL SQ SCH ×2 (08:00→12:00)
[2017-07-23] MEDS: INSULIN ASPART SUPPLEMENTAL SCALE SQ SCH ×2 (08:00→12:00)
--- NOTE | 2017-07-23 08:39 | HHI.PR ---
Subjective Remarks in no acute distress. denies chest pain, sob or dizziness. awaiting cardiac cath. Objective Vitals Vital Signs Date Time Temp Pulse Resp B/P (MAP) Pulse Ox O2 Delivery O2 Flow Rate FiO2 07/23/17 06:00 87 07/23/17 04:00 98.4 82 17 121/60 (80) 94 07/23/17 04:00 82 07/23/17 02:00 81 07/23/17 00:00 98.4 84 23 142/76 (98) 95 07/23/17 00:00 84 07/22/17 22:00 84 07/22/17 21:08 99.5 97 22 119/86 (97) 97 07/22/17 20:00 81 07/22/17 20:00 81 07/22/17 16:00 98.8 98 18 119/69 (86) 95 07/22/17 12:00 99.4 72 18 109/72 (84) 94 I/O 07/22/17 07/22/17 07/22/17 07/23/17 07/23/17 07/23/17 07:00 15:00 23:00 07:00 15:00 23:00 Intake Total 650 ml 0 ml Output Total 400 ml 250 ml Balance 650 ml -400 ml -250 ml Intake Oral 650 ml 0 ml Output Urine Total 400 ml 250 ml # Voids 2 3 # Bowel Movements 0 0 Result Diagram: 07/21/17 0605 07/20/17 0800 Imaging Last Impressions Chest X-Ray 07/20/17 0809 Signed Impressions: Service Date/Time: Thursday, July 20, 2017 08:13 - CONCLUSION: 1. Findings consistent with atelectasis/scarring in the left lung base. Jin Durán MD Objective Remarks GENERAL: This is a well-nourished, well-developed patient, in no apparent distress. CARDIOVASCULAR: Regular rate and irregular rhythm without murmurs, gallops, or rubs. RESPIRATORY: Clear to auscultation. Breath sounds equal bilaterally. No wheezes , rales, or rhonchi. GASTROINTESTINAL: Abdomen soft, non-tender, nondistended. Normal, active bowel sounds MUSCULOSKELETAL: Extremities without clubbing, cyanosis, or edema. NEURO: Alert & Oriented x4 to person, place, time, situation. Moves all ext x4 Medications and IVs Current Medications Sodium Chloride (NS Flush) 2 ml UNSCH PRN IVF FLUSH AFTER USING IV ACCESS Last administered on 07/20/17 08:27; Start 07/20/17 at 08:15; Stop 07/20/17 at 10 :24; Status DC Diltiazem HCl (Cardizem Inj) 15 mg ONCE ONCE IV PUSH Last administered on 08:27; Start 07/20/17 at 08:15; Stop 07/20/17 at 08:16; Status DC Diltiazem HCl 125 mg/Sodium Chloride 125 ml @ 5 mls/hr TITRATE PRN IV Tachycardia Last administered on 07/20/17 08:41; Start 07/20/17 at 08:15; Stop 07/20/17 at 11:20; Status DC Apixaban (Eliquis) 5 mg BID PO Last administered on 07/22/17 08:54; Start at 21:00; Status Future Hold Aspirin (Aspirin Chew) 81 mg DAILY CHEW Last administered on 07/22/17 09:00; Start 07/21/17 at 09:00 Insulin Detemir (Levemir Inj) 12 units HS SQ Last administered on 07/22/17 20 :10; Start 07/20/17 at 21:00 Sertraline HCl (Zoloft) 100 mg DAILY PO Last administered on 07/22/17 08:54; Start 07/21/17 at 09:00 Insulin Aspart (NovoLOG INJ) 4 units TIDAC SQ Last administered on 07/21/17 17:25; Start 07/20/17 at 12:00 Dextrose (D50w (Vial) Inj) 50 ml UNSCH PRN IV PUSH HYPOGLYCEMIA-SEE COMMENTS; Start 07/20/17 at 10:00 Glucagon (Glucagon Inj) 1 mg UNSCH PRN OTHER HYPOGLYCEMIA-SEE COMMENTS; Start 07/20/17 at 10:00 Insulin Aspart (NovoLOG SUPPLEMENTAL SCALE) 1 ACHS SLIDING SCALE SQ Last administered on 07/22/17 20:11; Start 07/20/17 at 12:00 Sodium Chloride (NS Flush) 2 ml UNSCH PRN IV FLUSH FLUSH AFTER USING IV ACCESS ; Start 07/20/17 at 10:00 Sodium Chloride (NS Flush) 2 ml BID IV FLUSH Last administered on 07/22/17 20 :10; Start 07/20/17 at 21:00 Acetaminophen (Tylenol) 650 mg Q4H PRN PO Temp > 100.4; Start 07/20/17 at 10: 00 Ondansetron HCl (Zofran Inj) 4 mg Q6H PRN IV PUSH NAUSEA; Start 07/20/17 at 10 :00 Senna/Docusate Sodium (Gneesis-Colace) 1 tab BID PRN PO CONSTIPATION; Start 07/20 at 10:00 Temazepam (Restoril) 15 mg HS PRN PO INSOMNIA; Start 07/20/17 at 10:00 Diltiazem HCl 125 mg/Sodium Chloride 125 ml @ 5 mls/hr TITRATE PRN IV Tachycardia; Start 07/20/17 at 11:30 Diltiazem HCl (Cardizem) 30 mg Q6HR PO Last administered on 07/21/17 05:32; Start 07/20/17 at 12:00; Stop 07/21/17 at 07:25; Status DC Pneumococcal Polyvalent Vaccine (Pneumovax-23 Inj) 25 mcg ONCE ONCE IM Last administered on 07/21/17 09:45; Start 07/21/17 at 10:00; Stop 07/21/17 at 10 :01; Status DC Influenza Virus Vaccine (Flu (Quadrivalent) Vaccine Inj) 0.5 ml ONCE ONCE IM Last administered on 07/21/17 09:45; Start 07/21/17 at 10:00; Stop 07/21/17 at 10:01; Status DC Diltiazem HCl (Cardizem Cd) 180 mg DAILY PO Last administered on 07/22/17 08: 53; Start 07/21/17 at 09:00 Digoxin (Lanoxin Inj) 0.5 mg NOW ONCE IVS Last administered on 07/22/17 08: 53; Start 07/22/17 at 08:30; Stop 07/22/17 at 08:31; Status DC Digoxin (Lanoxin Inj) 0.25 mg Q6H IVS Last administered on 07/22/17 15:43; Start 07/22/17 at 14:30; Stop 07/22/17 at 18:26; Status DC Digoxin (Lanoxin) 0.125 mg DAILY PO ; Start 07/23/17 at 09:00 Miscellaneous Information Patient in critical care unit? Ass... Q361D .XX ; Start 07/22/17 at 21:15 Chlorhexidine Gluconate (Chlorhexidine 2% Cloth) 3 pack DAILY@04 TOPICAL Last administered on 07/23/17t 04:00; Start 07/23/17 at 04:00; Stop 07/27/17 at 04: 01 Chlorhexidine Gluconate (Chlorhexidine 2% Cloth) 3 pack UNSCH PRN TOPICAL HYGIENIC CARE; Start 07/22/17 at 21:15; Stop 07/27/17 at 21:13 A/P Problem List: (1) Atrial fibrillation with RVR ICD Code: I48.91 - Unspecified atrial fibrillation Assessment and Plan A/P Atrial fibrillation with RVR/ cardiomyopathy CHADS score 2, patient anticoagulated on Eliquis ACS ruled out per protocol with serial cardiac enzymes and EKGs s/p Cardizem IV drip and currently on Cardizem CD 180 mg daily We'll hold metoprolol secondary to low blood pressure echo with EF 45% cardiology consult appreciated and plan for cardiac cath today. chest discomfort, ACS ruled out per protocol with serial cardiac enzymes and EKGs 2D echocardiogram with EF 45-50% Diabetes Continue Levemir Accu-Cheks with sliding scale insulin DVT prevention Patient is anticoagulated with Eliquis ( on hold for the planned procedure) Discharge Planning awaiting cardiac cath and cardiology recommendations. Ina Chew MD Jul 23, 2017 08:39
[2017-07-23] MEDS ORDERED: CARD180C5 PO (08:41)
[2017-07-23] MEDS ORDERED: DIGOXIN 0.125 MG TAB PO SCH (09:00)
[2017-07-23] MEDS: DILTIAZEM-CD 180 MG CAP ER PO SCH (09:49)
[2017-07-23] MEDS: ASPIRIN 81 MG CHEW TAB CHEW SCH (09:49)
[2017-07-23] MEDS: SODIUM CHLORIDE 0.9% FLUSH 10 ML FLUSH IV FLUSH SCH (09:49)
[2017-07-23] MEDS: SERTRALINE HCL 100 MG TAB PO SCH (09:49)
[2017-07-23] MEDS ORDERED: HEPARIN-NS/PF INJ 1,000 ML ONE (15:16)
[2017-07-23] MEDS ORDERED: MIDAZOLAM HCL 2 MG/2 ML VIAL ONE (15:33)
[2017-07-23] MEDS ORDERED: MISC INFORMATION XX ONE (16:30)
[2017-07-23] MEDS ORDERED: SODIUM CHLORIDE 0.9% FLUSH 10 ML FLUSH IV FLUSH PRN (16:30)
--- NOTE | 2017-07-23 16:34 | CATHPROC ---
[employer] HIS Report Study Information Study Number Admission Scheduled Start Study Start [id number] Jul 20 2017 9:54AM 07/23/2017 Jul 23 2017 3:08PM [facility] Cardiac Catheterization Admit Source Facility Department Emergency department [facility] - Order Clerk Physician and Clinical Staff Initial All Bennett Evaporator Operator Indira Hebert RN Recorder Meri Saucedo,RT(R) ScrPatricia HedrickRT(R) (BS) Procedures Performed Procedure Location (Site) Vessel Name Coronary Angiograms LCA Left Coronary Coronary Angiograms RCA Right Coronary Coronary Angiograms Asc. Aorta (A) LV Gram-hand inj. LV LV Ventricle Equipment Time Digital Measurement Advisor Description Size Mfg Part Number Used/Scraped CATHETER, FR5 SWAN DMITRIY 15:11 [employer]ossom FR 5 [id number] *[id number] Used MONITOR TRANSDUCER, TRUWAVE [id number] 15:11 MENDIOLA LEW * Used W/STOCKCOCK *[id number] 538-446 *[id number] 538-420 *[id number] [id number] *[id number] 538-421 *[id number] 15:11 [employer] PACK, CCL CUSTOM * Used *[id number] 15:11 [employer] PACER PEN, SKIN DUAL W/ RULER * Used *[id number]- 15:11 [employer] MEDICAL SHEATH, FR5.5 PRELUDE 11CM FR 5.5 Used 038ACT# [id number] 15:11 [employer] MEDICAL WIRE, 3MMJ .035 180CM 180CM Used *[id number] 15:11 NAMIC MANIFOLD, 4 PORT * Used *[id number] 15:11 [employer] OMNIPAQUE, 350 MG, 150ML 150ML [id number] Used [id number] 15:11 [employer],WARM AIR CCL * Used *[id number] 15:11 [employer] MEDICAL SHEATH, FR4 TERUMO (10CM) FR 4 Used *[id number] History: Current Medications Medication Dosage/Unit Route Frequency Last Date/Time Taken ASA ELIQUIS History: Allergies Allergy Reaction No Known Allergies History: Risk Factors Family History of Hypertension Dyslipidemia Previous MA Previous Heart Failure Premature CAD Yes No No No No Prior Valve Prior PCI Prior CABG Surgery No No No Cerebrovascular Peripheral Artery Chronic Lung On Dialysis Diabetes Diabetes Therapy Disease Disease Disease No Yes No No Yes Insulin History: Symptoms/Diagnosis Selection Items Chest pain SOB History: Arrhythmias Selection Items Atrial fibrillation History: Other Current Smoker Method No Cigarettes Labs Hgb (g/dl) Hct (%) WBC (l/cumm) Platelets (thousands) 11.60-17.00 35.00-51.00 4.00-11.00 150.00-450.00 12.8 38.2 6.8 101 Glucose (mg/dl) BUN (mg/dl) Creatinine (mg/dl) BUN:Creatinine (1:x) 74.00-106.00 7.00-18.00 0.50-1.30 10.00-20.00 208 12 0.6 20 Na (meq/l) K (meq/l) 136.00-145.00 3.50-5.10 135 4.1 Troponin I (ng/ml) CPK (u/l) CPK-MB (ng/ML) 0.02-0.05 26.00-308.00 0.50-3.60 0.02 47 Not Drawn Medication Medication Total Dose (Bolus/Oral) Medication Total Dosage/Unit 1% XYLOCAINE 20 mL FENTANYL 25 mcg VERSED 1 mg Medications (Bolus/Oral) Medication Time Given Dosage/Unit Administered By Reason VERSED 07/23/2017 3:35:00 PM 1 mg Indira Hebert 1 mg VERSED given in lab by Indira Hebert RN in Right Antecubital via Peripheral IV. Ordered by All Vick. FENTANYL 07/23/2017 3:36:25 PM 12.5 mcg Indira Hebert 12.5 mcg FENTANYL given in lab by Indira Hebert, BIJAL in Right Antecubital via Peripheral IV. Ordered by All Cabrera. 1% XYLOCAINE 07/23/2017 3:37:05 PM 20 mL All Cabrera 20 mL 1% XYLOCAINE given in lab by All Cabrera in Right Groin via Subcutaneous. FENTANYL 07/23/2017 3:38:00 PM 12.5 mcg Indira Hebert 12.5 mcg FENTANYL given in lab by Indira Hebert, BIJAL in Right Antecubital via Peripheral IV. Ordered by All Cabrera. Medication (Drip) Medication Time Given Dosage/Unit Concentration/Unit Diluent (ml) Solution IV Solutions 07/23/2017 3:27:57 PM 50 mL (IV) NaCl .9 IV Solutions given in lab by Indira Hebert, BIJAL in Right Antecubital via Peripheral IV. Pump/Drip Fl ow using NaCl .9. Initial Case Assessment Cardiovascular HR Rhythm NIBP Chest Pain 90 A-FIB 118/77 0 Edema Present Skin color Skin None Normal Warm Dry Circulatory - Right Pulses Dorsalis Pedis Femoral 3 3 Scale (0,1,2,3,4,d) Circulatory - Left Pulses Dorsalis Pedis Femoral 3 3 Scale (0,1,2,3,4,d) Neurological State Oriented to time-place- Alert Moves all extremities person Respiration - General Respiration Rate SpO2 (%) (B/min) 15 Chronological Log Time Study Chronological Log 15:10:51 Patient arrived via Bed. Vitals capture started with the following parameters, Patient=Adult, Interval=5 min, Initial Jnridxmi=875 mmHg, 15:19:29 Deflation Rate=5 mmHg, Cuff placed on Left Arm 15:20:06 HR=95 bpm, FJPT=436/77 mmhg, SpO2=93 %, Resp=17 B/min 15:25:03 HR=82 bpm, WWKA=546/64 mmhg, SpO2=93 %, Resp=23 B/min 15:27:02 Patient Name, D.O.B, / Armband Verified By R.N. 15:27:06 Consent signed by the physician and the patient and verified by the Order Clerk staff. 15:27:07 Pre-op and post- op instructions given; patient acknowledges understanding of instruction s. 15:27:08 Verbal Stimulation=2 Physical Stimulation=2 Airway=2 Respiration=2 TOTAL=8. (0=absent, 1= limited, 2=present) 15:27:20 Patient has been NPO for More than 6Hrs. 15:27:23 Skin Breakdown-None Per Patient 15:27:25 Patient Warmer Placed on the Table. 15:27:29 Felipe Prominences Protected 15:27:36 A # 20 IV was noted in the Antecubital (right). Grade = 0 15:27:57 IV Solutions given in lab by Indira Hebert, RN in Right Antecubital via Peripheral IV. Pu mp/Drip Flow using NaCl .9. 15:28:37 History and physical on the chart or being dictated. Assessment: Initial Case, HR=90 BPM, Rhythm=A-FIB, BYIN=878/77 mmhg, Chest Pain=0, Edema=None, Color=Normal, Skin = Warm, Dry Right Pulses: Harrison Ped=3, Femoral=3 15:28:39 Left Pulses: Harrison Ped=3, Femoral=3 Neurological: State=Alert, Ox3, STILES Respiration: Resp=15 B/min, SpO2=93 % 15:30:06 HR=93 bpm, REES=330/36 mmhg, SpO2=94.0 %, Resp=14 B/min 15:30:37 MD paged 15:33:00 MD arrived. 15:35:00 1 mg VERSED given in lab by Indira Hebert, BIJAL in Right Antecubital via Peripheral IV. Ord ered by All Cabrera. 15:35:03 HR=79 bpm, IXMC=568/55 mmhg, SpO2=94 %, Resp=18 B/min Time Out. Correct patient, correct procedure, correct physician, power injector loaded, or not loaded with contrast with 15:35:14 surgical team present. Time Out Concurred by MD and individual staff in procedure. 15:35:30 Case Start 12.5 mcg FENTANYL given in lab by Indira Hebert, BIJAL in Right Antecubital via Peripheral IV. O rdered by Rick, 15:36:25 All. 15:37:05 20 mL 1% XYLOCAINE given in lab by All Cabrera in Right Groin via Subcutaneous. 12.5 mcg FENTANYL given in lab by Indira Hebert, RN in Right Antecubital via Peripheral IV. O rdered by Rick, 15:38:00 All. 15:38:26 Reference ECG taken 15:39:05 Access site was Right Femoral Artery. 15:39:08 Pressure channel 1 zeroed. 15:39:14 A SHEATH, FR4 TERUMO (10CM) FR 4 was advanced into the Fem Art (right) using the Percutaneo us technique. 15:39:35 Saturation: Site=FA (Femoral Artery) , O2=94.5 %, Hgb=12.8 gm/dl, Condition=Condition 1. Us ed in calculation. 15:40:00 HR=84 bpm, DKJP=219/68 mmhg, SpO2=93 %, Resp=10 B/min 15:40:11 Access site was Right Femoral Vein. 15:40:18 A SHEATH, FR5.5 PRELUDE 11CM FR 5.5 was advanced into the Fem Vein (right) using the Percut aneous technique. 15:41:00 A CATHETER, FR5 SWAN DMITRIY MONITOR FR 5 was inserted via Fem Vein (right) Recorded Pressure: PCW, HR=91, Condition=Condition 1 15:42:41 (Pulmonary Capillary Wedge) PCW 8 Recorded Pressure: MPA, HR=83, Condition=Condition 1 15:42:59 (Main Pulmonary Artery) MPA 15 15:43:19 Saturation: Site=PA (Pulmonary Artery) , O2=67.1 %, Hgb=12.8 gm/dl, Condition=Condition 1. Used in calculation. Recorded Pressure: RV, HR=96, Condition=Condition 1 15:44:06 (Right Ventricle) RV 28/0/4 Recorded Pressure: RA, HR=78, Condition=Condition 1 15:44:17 (Right Atrium) RA 12/28/2 15:44:46 Saturation: Site=RA (Right Atrium) , O2=69.9 %, Hgb=12.8 gm/dl, Condition=Condition 1. Used in calculation. 15:45:03 HR=73 bpm, YAWL=761/63 mmhg, SpO2=87.0 %, Resp=14 B/min A JR 4.0 INFINITI CATHETER FR 4 was advanced over a wire. OMNIPAQUE, 350 MG, 150ML 150ML was us ed for 15:46:40 injections. Recorded Pressure: LV, HR=88, Condition=Condition 1 15:47:25 (Left Ventricle) LV 114/2/7 15:47:43 The LV was manually injected with 6 cc's and visualized. OMNIPAQUE, 350 MG, 150ML 150ML use d. Recorded Pressure: LV, Ao, HR=80, Condition=Condition 1 15:47:54 (Left Ventricle) LV 116/4/7, (Aorta) Ao 113/64/85 15:48:35 The Asc. Aorta (A) was injected and visualize. OMNIPAQUE, 350 MG, 150ML 150ML used. 15:50:00 HR=98 bpm, RROB=851/67 mmhg, SpO2=93.0 %, Resp=15 B/min After removing the current catheter a JL 5.0 INFINITI CATHETER FR 4 was advanced over a WIRE, 3MMJ .035 180CM 15:50:52 180CM. 15:51:33 The LCA was injected and visualized at various angles. OMNIPAQUE, 350 MG, 150ML 150ML use d. Recorded Pressure: Ao, HR=83, Condition=Condition 1 15:52:05 (Aorta) Ao 119/71/92 After removing the current catheter a AL 2 INFINITI CATHETER FR 4 was advanced over a WIRE, 3M MJ .035 180CM 15:53:49 180CM. 15:54:23 The RCA was injected and visualized at various angles. OMNIPAQUE, 350 MG, 150ML 150ML use d. 15:55:01 HR=91 bpm, GZXL=595/73 mmhg, SpO2=94.0 %, Resp=15 B/min 15:55:05 Catheter was removed 15:55:09 Case End 16:00:00 Sheath removed; pressure applied to access site. 16:00:03 HR=89 bpm, GWQN=872/67 mmhg, SpO2=94.0 %, Resp=15 B/min 16:05:06 HR=80 bpm, NIBP=93/66 mmhg, SpO2=96.0 %, Resp=11 B/min 16:09:59 HR=84 bpm, HXXB=388/74 mmhg, SpO2=95.0 %, Resp=10 B/min 16:10:20 Venous Sheath removed; pressure applied to access site. 16:13:39 Sterile dressing applied to site 16:13:40 No case complications noted. 16:13:42 Bedside Report will be given. 16:13:47 A Left and Right Heart Cath was performed. 16:15:02 HR=73 bpm, TDAJ=922/73 mmhg, SpO2=95.0 %, Resp=14 B/min 16:15:46 Vitals capture stopped. 16:16:00 Patient moved to stretcher End Study - Contrast Media Used In Study Contrast Total Opened (mL) Total Used (mL) Total Wasted (mL) Omnipaque 45 45 0 End Study - Maximum Contrast Load Max Contrast Load (mL) 655.3 End Study - Radiation Exposure Fluoro Time (minutes) 2.5 End Study - Patient Disposition Complications Transferred To Interventional Outcome No Telemetry Bed No attempt made
--- NOTE | 2017-07-23 16:53 | MA ---
cc: ALL MORALEZ M.D. DATE 07/23/2017 PROCEDURE PERFORMED 1. Right heart catheterization. 2. Left heart catheterization. 3. Left ventriculography. 4. Coronary angiography. INDICATION Cardiomyopathy. Ejection fraction 45% on 2-D echo. Unstable angina. A-fib with rapid ventricular response, coronary artery disease, multiple cardiac risk factors, tobacco use. PROCEDURE The patient was brought to the Cardiac Catheterization Laboratory, prepped and draped in the usual sterile fashion. 10 cc of 1% lidocaine was used to locally anesthetize the right common femoral artery. A 4 [place]er sheath placed in the right common femoral artery. 5 [place] sheath placed in the right common femoral vein. Right heart catheterization was performed first with the following findings: Pulmonary capillary wedge pressure 11/12-8. PA pressure 23/7-15. RV pressure 20/0-4. RA pressure 5/4-2. Cardiac output on room air was 5.1 liters per minute. Cardiac index 2.6 liters per meter square per minute. Cardiac index 1306 dynes. On room air the femoral artery sat 94.5%. PA sat 67.1%, RA sat 69.9%. Left heart catheterization was then performed with a 4 [place]er JL-5 and AL-2 catheter with the following findings: LV pressures 120/3-4. Ejection fraction 40-45%, global hypokinesis. The left main coronary artery has an ostial proximal 30% stenosis. Left circumflex vessel has an ostial 40-50% stenosis. It gives rise to a large first obtuse marginal vessel which approaches the apex, has mild disease in the proximal segment up to 10% angiographically. The remainder of the AV groove, left circumflex vessel has no significant disease angiographically. It is a small vessel, probably 0.5 mm in diameter. The first diagonal artery off the LAD has an ostial proximal 75-80% stenosis. It is a medium-sized vessel. The LAD is transapical, has an approximate 60% stenosis. Second diagonal artery is a small vessel with no significant disease angiographically. Right coronary artery is dominant. Has an inferior posterior takeoff. There is mild diffuse disease in the distal segment up to 10-20% angiographically. CONCLUSION 1. Moderate to severe first diagonal artery and LAD, left circumflex vessel disease as detailed above. Otherwise, mild disease in the distal right coronary artery as detailed above. 2. Cardiomyopathy with EF 40-45%. 3. Normal right heart catheterization pressures as detailed above. 4. The patient's angina was associated with a-fib with rapid ventricular response, with rate control he is asymptomatic. 5. I recommend the patient restart his Eliquis tonight at 8:00 p.m., continue 5 milligrams b.i.d. He is going to follow up with me in the office tomorrow or Sunday. At that point in time will check his fasting lipids ___ CK and treat NCEP guidelines. Strongly recommend smoking cessation. All Moralez MD AWC/EO /4:07 PM /4:31 PM
--- NOTE | 2017-07-23 17:19 | HHI.DS ---
Discharge Summary Admission Date Jul 20, 2017 at 09:54 Discharge Date: Jul 23, 2017 Admitting Diagnosis atrial fibrillation with rvr (1) Atrial fibrillation with RVR ICD Code: I48.91 - Unspecified atrial fibrillation Procedures cardiac cath. Brief History - From Admission Written by Chace Angeles, acting as scribe for Dr. Weinberg on 07/20/17 at 09 :56. 61 year-old male with known history of spinal stenosis, atrial fibrillation who presented to the hospital because of shortness of breath, dyspnea on exertion, chest discomfort, palpitations. Patient states that he is normal state of health until yesterday afternoon when he started noticing palpitations and he could feel his atrial fibrillation. Whenever he exerted himself he did notice increased palpitations as well as a chest pressure, he describes it as a squeezing inside of his chest. At any radiation to neck, back , shoulder, arms. He denied any diaphoresis, lightheadedness, dizziness. He was experiencing shortness of breath and dyspnea on exertion. Patient states that he was diagnosed with atrial fibrillation in April when he underwent lumbar spine surgery. He is supposed to take the Toprol 25 mg twice daily, however he is limited taken it once daily because it causes him to have too much fatigue and somnolence. Patient has not followed up with any primary medical doctor or peritoneal dialysis registered nurse for his atrial fibrillation since he was diagnosed in April in [place], [place]. Patient just moved here one week ago and does not have a primary medical doctor. Patient had evaluation emergency department found to have atrial fibrillation with RVR with heart rate of 131. Patient given Cardizem IV 15 mg with control of his heart rate and subtotally started on Cardizem 5 mg/hr IV. Patient's heart rate has remained controlled. Patient does not indicate any chest discomfort once rate controlled. CBC/BMP: 07/21/17 0605 07/20/17 0800 Significant Findings Laboratory Tests Test 07/20/17 20:05 07/21/17 06:05 07/22/17 21:07 07/23/17 05:18 Troponin I LESS THAN 0.02 NG/ML Red Blood Count 4.49 MIL/MM3 (4.50-5.90) Hemoglobin 12.8 GM/DL (13.0-17.0) Hematocrit 38.2 % (39.0-51.0) Platelet Count 101 TH/MM3 (150-450) Imaging Last Impressions Chest X-Ray 07/20/17 0809 Signed Impressions: Service Date/Time: Thursday, July 20, 2017 08:13 - CONCLUSION: 1. Findings consistent with atelectasis/scarring in the left lung base. Jin Durán MD PE at Discharge GENERAL: This is a well-nourished, well-developed patient, in no apparent distress. CARDIOVASCULAR: Regular rate and irregular rhythm without murmurs, gallops, or rubs. RESPIRATORY: Clear to auscultation. Breath sounds equal bilaterally. No wheezes , rales, or rhonchi. GASTROINTESTINAL: Abdomen soft, non-tender, nondistended. Normal, active bowel sounds MUSCULOSKELETAL: Extremities without clubbing, cyanosis, or edema. NEURO: Alert & Oriented x4 to person, place, time, situation. Moves all ext x4 Hospital Course Atrial fibrillation with RVR/ cardiomyopathy CHADS score 2, patient anticoagulated on Eliquis ACS ruled out per protocol with serial cardiac enzymes and EKGs s/p Cardizem IV drip and currently on Cardizem CD 180 mg daily We'll hold metoprolol secondary to low blood pressure echo with EF 45% cardiology consult appreciated and plan for cardiac cath today. chest discomfort, ACS ruled out per protocol with serial cardiac enzymes and EKGs 2D echocardiogram with EF 45-50% Diabetes Continue Levemir Accu-Cheks with sliding scale insulin DVT prevention Patient is anticoagulated with Eliquis ( on hold for the planned procedure) Pt Condition on Discharge: Fair Discharge Disposition: Discharge Home Discharge Time: <= 30 minutes Discharge Instructions DIET: Follow Instructions for: Heart Healthy Diet, Diabetic Diet Activities you can perform: Regular-No Restrictions Follow up Referrals: Cardiology PCP Follow-up New Medications: Diltiazem CD 24 HR (Cardizem CD 24 HR) 180 Mg Caper 180 MG PO DAILY for a-fib for 30 Days, #30 CAP 0 Refills Continued Medications: Apixaban (Eliquis) 5 Mg Tab 5 MG PO BID for Blood Clot Prevention, #60 TAB 0 Refills Aspirin (Aspirin Low Dose) 81 Mg Chew 81 MG CHEW DAILY, TAB 0 Refills Insulin Detemir Inj (Levemir Inj) 1,000 unit/ 10 ML Vial 12 UNITS SQ HS for Blood Sugar Management, VIAL 0 Refills Do not mix with any other Insulin. Insulin Lispro (Humalog) 100 Unit/Ml Cartridge 4 UNITS SQ TIDAC Sertraline (Zoloft) 100 Mg Tab 100 MG PO DAILY, #30 TAB 0 Refills Discontinued Medications: Metoprolol Tartrate (Metoprolol Tartrate) 50 Mg Tab 50 MG PO BID, #60 TAB 0 Refills Ina Chew MD Jul 23, 2017 17:19
--- NOTE | 2017-07-23 17:21 | HHI.PR ---
Addendum To [facility] Progress Not Reason for addendum: Additonal documentation (s/p cardiac cath- d/w and the patient was cleared for discharge with outpatient f/u; will dc home- d/w the RN.) Ina Chew MD Jul 23, 2017 17:21
[2017-07-23] MEDS ORDERED: IOHEXOL 350 MG/ML 50 ML BTL (for Cath Lab) OTHER ONE (18:54)
[2017-07-23] MEDS ORDERED: SODIUM CHLORIDE 0.9% FLUSH 10 ML FLUSH IV FLUSH SCH (21:00)
== END 2017-07-23 18:55 | disposition home or self-care (01) | DRG 287 ==
LOC: PHED 07:59 → PHEDA 09:54 → PHICU 10:35 → PH3A 07-21 14:54 → HIME 07-22 20:55
PROVIDERS: ADMIT Internal Medicine; ATTEND Internal Medicine
PROC: 3E0F7GC Introduction of Other Therapeutic Substance into Respiratory Tract, Via Natural or Artificial Opening (ICD-10-PCS; principal; 2017-07-20)
PROC: 4A023N8 Measurement of Cardiac Sampling and Pressure, Bilateral, Percutaneous Approach (ICD-10-PCS; 2017-07-23)
PROC: B2111ZZ Fluoroscopy of Multiple Coronary Arteries using Low Osmolar Contrast (ICD-10-PCS; 2017-07-23)
PROC: B2151ZZ Fluoroscopy of Left Heart using Low Osmolar Contrast (ICD-10-PCS; 2017-07-23)
DX: I48.0 Paroxysmal atrial fibrillation (principal); I42.9 Cardiomyopathy, unspecified; D69.6 Thrombocytopenia, unspecified; E87.1 Hypo-osmolality and hyponatremia; I50.9 Heart failure, unspecified; I25.10 Atherosclerotic heart disease of native coronary artery without angina pectoris; E11.9 Type 2 diabetes mellitus without complications; D64.9 Anemia, unspecified; F32.9 Major depressive disorder, single episode, unspecified; Z79.4 Long term (current) use of insulin; M48.061 Spinal stenosis, lumbar region without neurogenic claudication; K21.9 Gastro-esophageal reflux disease without esophagitis; F17.210 Nicotine dependence, cigarettes, uncomplicated; I44.4 Left anterior fascicular block; I34.0 Nonrheumatic mitral (valve) insufficiency; Z23 Encounter for immunization
CPT/HCPCS: 71010; 80053; 80162; 82550; 82810; 82948; 83735; 83880; 84439; 84443; 84484; 85025; 85027; 87641; 90686; 90732; 93005; 93306; 93460; 96365; 96375; 99152; 99153; C1769; C1893; J1160; J1644; J1815; J2250; J3010; Q2038; Q9967